=== PATIENT | male | born 1955 | race Two or more races ===

== ENCOUNTER 2018-07-21 00:30 | Inpatient (IN) | payer BC ==
[2018-07-21] VITALS (8 sets, daily range): BP systolic 130–146; BP diastolic 62–79; PULSE 72–86; RESP 16–20; Ht 180.3 cm; Wt 96.4 kg
[~2018-07-21] VITALS: Ht 180.3 cm; Wt 96.4 kg
[2018-07-21] MEDS ORDERED: NACL 0.9% 3 ML SYG IV SCH (06:00)
[2018-07-21] MEDS ORDERED: DOCUSATE SODIUM 100 MG CAP PO PRN (06:00)
[2018-07-21] MEDS ORDERED: BISACODYL (EC) 5 MG TAB PO PRN (06:00)
[2018-07-21] MEDS ORDERED: ACETAMINOPHEN 325 MG TAB PO PRN (06:00)
[2018-07-21] MEDS ORDERED: ONDANSETRON 4 MG INJ IV PRN ×2 (06:00)
[2018-07-21] MEDS ORDERED: GLUCOSE GEL 15 GRAM TUBE BUCCAL PRN (06:30)
[2018-07-21] MEDS ORDERED: GLUCOSE GEL 15 GRAM TUBE PO PRN ×2 (06:30)
[2018-07-21] MEDS ORDERED: DEXTROSE 50% 50 ML SYRINGE IV PRN ×2 (06:30)
[2018-07-21] MEDS ORDERED: GLUCAGON 1 MG INJ IM PRN (06:30)
[2018-07-21] MEDS: MECLIZINE 25 MG TAB PO SCH ×3 (08:08→12:10)
[2018-07-21] MEDS: INSULIN ASPART [NOVOLOG] 3 ML PEN SC SCH ×3 (08:10→18:13)
[2018-07-21] MEDS ORDERED: NITROGLYCERIN (SL) 0.4 MG TAB SL PRN (14:00)
[2018-07-21] MEDS ORDERED: ASPIRIN 81 MG TAB PO SCH (14:00)
--- NOTE | 2018-07-21 14:12 | HP ---
Date/Time of Note Date/Time of Note DATE: 07/21/18 TIME: 14:04 Assessment/Plan VTE Prophylaxis Risk score (from Nsg)>0 risk: 3 SCD applied (from Nsg): Yes Pharmacological prophylaxis: heparin Lines/Catheters IV Catheter Type (from Nrsg): Saline Lock Assessment/Plan Hospital Course SUBJECTIVE: Lying in bed comfortably. Currently no chest pain, palpitation, shortness of breath, nausea, diaphoresis or other discomfort. OBJECTIVE: Vital signs-see below PHYSICAL EXAM: Constitutional: Well-developed, adequately built, lying in bed comfortably. Psych: nl mood/affect, no complaints Head: atraumatic, normocephalic Eyes: nl conjunctiva, nl sclera ENMT: mucosa pink and moist, nl external ears & nose Neck: non-tender, supple Respiratory: clear to auscultation, normal air movement Cardiovascular: nl pulses, regular rate and rhythm Gastrointestinal: non-tender, soft, bowel sounds active in all 4 quadrants. Musculoskeletal/extremities: nl extremities to inspection, motor strength equal bilaterally, no focal deficit. Normal pulses,no cyanosis, no edema. Neurological: Alert oriented 3,nl speech, nl strength Skin: nl turgor ASSESSMENT/PLAN: 62-year-old Farsi speaking male with htn, hyperlipidemia, brain tumor resection surgery, transferred from outside hospital for sudden onset of dizziness/chest pain. 1. Chest pain. Rule out acute coronary syndrome. -Transfer patient to appropriate telemetry floor, rule out ACS with serial troponin, EKG. -Cardiology consult -TTE -Aspirin prophylaxis, PRN nitroglycerin, PRN morphine, oxygen if indicated. 2. Dizziness -Rule out cardiac etiology versus neurovascular etiology versus vertigo -Orthostatic series, CT brain -Meclizine trial -PT eval 3. DMII -A1c noted -Accu-Cheks/ISS/Lantus -Diabetic education, carbohydrate controlled diet 4. Hyperlipidemia -Start statin DVT prophylaxis: Heparin PUD prophylaxis: Not indicated CODE STATUS: Full code Diet: Carbohydrate controlled diet. Mese[employer] nursing staff to transfer patient to telemetry for further workup. Farsi translation was used during the interview process. Rest of the management depend on hospital course. Approximately 60 m spent on this history and physical. Patient is seen in collaboration with Dr. Franz Result Diagram: 07/21/1861107/[id number]/18611 Results 24hrs Laboratory Tests Test 07/21/18 05:19 07/21/18 06:12 07/21/18 08:08 07/21/18 12:08 Bedside Glucose 157 190 234 H White Blood Count 6.4 Red Blood Count 4.32 L Hemoglobin 13.6 L Hematocrit 39.0 L Mean Corpuscular Volume 90.3 Mean Corpuscular 31.5 Hemoglobin Mean Corpuscular 34.9 Hemoglobin Concent Red Cell Distribution 11.6 Width Platelet Count 157 Mean Platelet Volume 13.2 H Immature Granulocytes % 0.300 Neutrophils % 47.0 Lymphocytes % 41.3 Monocytes % 8.3 Eosinophils % 2.5 Basophils % 0.6 Nucleated Red Blood 0.0 Cells % Immature Granulocytes # 0.020 Neutrophils # 3.0 Lymphocytes # 2.6 Monocytes # 0.5 Eosinophils # 0.2 Basophils # 0.0 Nucleated Red Blood 0.0 Cells # Sodium Level 142 Potassium Level 3.7 Chloride Level 109 Carbon Dioxide Level 26 Anion Gap 7 Blood Urea Nitrogen 14 Creatinine 0.75 Est Glomerular Filtrat > 60 Rate mL/min Glucose Level 160 Hemoglobin A1c 10.0 H Calcium Level 8.9 Magnesium Level 2.0 Total Bilirubin 0.4 Direct Bilirubin 0.00 Indirect Bilirubin 0.4 Aspartate Amino 19 Transf (AST/SGOT) Alanine 30 Aminotransferase (ALT/SG PT) Alkaline Phosphatase 47 Total Protein 6.2 Albumin 3.5 Globulin 2.70 Albumin/Globulin Ratio 1.29 Triglycerides Level 204 H Cholesterol Level 146 LDL Cholesterol, 68 Calculated HDL Cholesterol 37 Cholesterol/HDL Ratio 3.9 Thyroid Stimulating 0.683 Hormone (TSH) HPI/ROS Admit Date/Time Admit Date/Time Jul 21, 2018 at 04:14 Hx of Present Illness This is a 62-year-old Farsi speaking male with a history of type 2 diabetes, hyperlipidemia, brain tumor resection, knee surgeries, cholecystectomy, tobacco use, presented to outside hospital with sudden onset of chest pain, diaphoresis, and dizziness times 1 day duration. He also reported some ringing in his left ear. Patient had a similar episode one year ago. His symptoms exacerbated by activity and relieved by rest. Patient never had any cardiac workup. There is no medical records available from outside hospital. Patient denied shortness of breath, nausea, vomiting, abdominal pain, loss of consciousness, speech difficulties, vision changes, numbness, tingling, headache, constitutional symptoms. [facility] ROS A 12 point review of system was assessed and is negative other than what is mentioned in the HPI. PMH/Family/Social Past Medical History See HPI Medications Current Medications IV Flush (NS 3 ml) 3 ml PER PROTOCOL IV ; Start 07/21/18 at 06:00 Acetaminophen (Tylenol Tab) 650 mg Q6H PRN PO .PAIN 1-3 OR TEMP; Start 07/21/18 at 06:00 Docusate Sodium (Colace) 100 mg Q12H PRN PO .CONSTIPATION; Start 07/21/18 at 06: 00 Bisacodyl (Dulcolax) 5 mg DAILY PRN PO .CONSTIPATION; Start 07/21/18 at 06:00 Meclizine HCl (Antivert) 25 mg TID PO Last administered on 07/21/18at 12:10; Admin Dose 25 MG; Start 07/21/18 at 06:00 Ondansetron HCl (Zofran Inj) 4 mg Q4H PRN IV NAUSEA/VOMITING; Start 07/21/18 at 06:00 Diagnostic Test (Pha) (Accu-Chek) 1 ea 02 XX ; Start 07/22/18 at 02:00 Insulin Aspart (Novolog Insulin Pen) NOVOLOG *MILD* ALGORITHM WITH MEALS BEDTIME SC Last administered on 07/21/18at 12:10; Admin Dose 3 UNIT; Start 07/21/18 at 08:00 Miscellaneous Information 1 ea NOTE XX ; Start 07/21/18 at 06:30 Glucose (Glutose) 15 gm Q15M PRN PO DECREASED GLUCOSE; Start 07/21/18 at 06:30 Glucose (Glutose) 22.5 gm Q15M PRN PO DECREASED GLUCOSE; Start 07/21/18 at 06:30 Dextrose (D50w Syringe) 25 ml Q15M PRN IV DECREASED GLUCOSE; Start 07/21/18 at 06:30 Dextrose (D50w Syringe) 50 ml Q15M PRN IV DECREASED GLUCOSE; Start 07/21/18 at 06:30 Glucagon (Glucagen) 1 mg Q15M PRN IM DECREASED GLUCOSE; Start 07/21/18 at 06:30 Glucose (Glutose) 15 gm Q15M PRN BUCCAL DECREASED GLUCOSE; Start 07/21/18 at 06:30 Influenza Virus Vaccine Quadrival (Fluzone) 0.5 ml ONCE ONCE IM* ; Start 07/22/18 at 10:00; Stop 07/22/18 at 10:01 Insulin Glargine (Lantus) 19 units DAILY@0800 SC ; Start 07/21/18 at 14:30 Fish Oil (Fish Oil) 1,000 mg BID PO ; Start 07/21/18 at 21:00 Aspirin (Aspirin) 81 mg DAILY PO ; Start 07/21/18 at 14:00; Status UNV Nitroglycerin (Nitroglycerin (Sl Tab) 0.4 Mg) 1 tab Q5M PRN SL ANGINA; Start 07/21/18 at 14:00; Status UNV Coded Allergies: No Known Allergy (Unverified , 07/21/18) Past Surgical History Cholecystectomy, brain tumor resection surgery, knee surgery, Social History Smokes 2 cigarettes/day. Denies alcohol or substance abuse. Smoking Status: Current every day smoker Exam/Review of Systems Vital Signs Vitals Vital Signs Date Temp Pulse Resp B/P (MAP) Pulse Ox O2 O2 Flow FiO2 Time Delivery Rate 07/21/18 98.6 80 20 136/70 94 08:00 (92) NAPOLEON BRIZUELA NP Jul 21, 2018 14:11
[2018-07-21] MEDS ORDERED: INSULIN GLARGINE [LANTus] (100 UNITS/ML) SYG SC SCH (14:30)
--- NOTE | 2018-07-21 17:15 | RADRPT ---
Echocardiogram Report Patient Name: YONAS CHRISTINEPatient ID: [id number] : 1955 (62y 8m)Study Date: 07/21/2018 2:47:42 PM Gender: MAccession #: [id number] Tech: Don Gan [facility] Location: [id number] Ref.Physician: NAPOLEON BRIZUELA Height(Cm): BSA: Weight(Kg): Quality: AdequateAccount #: Procedures: Echocardiographic Report: Transthoracic echocardiogram with complete 2D, M-Mode, and doppler examination. Indications: Chest Pain. Measurements: 2D/M Mode Doppler Measurement Value Normal Range Measurement Value Normal Range LVIDd 2D 3.7 [ 4.2 - 5.8 ] cm AV Peak Murali 1.7 [ 100.0 - 170.0 ] cm/sec LVIDs 2D 2.0 [ 2.5 - 4.0 ] cm AV Peak PG 12.0 [ 2.0 - 9.0 ] mmHg LVPWd 2D 1.1 [ 0.6 - 1.0 ] cm LVOT Peak Murali 1.1 [ 70.0 - 110.0 ] cm/sec IVSd 2D 1.0 [ 0.6 - 1.0 ] cm LVOT Peak PG 5.0 [ 2.0 - 6.0 ] mmHg AoR Diam 2D 2.7 [ 2.6 - 3.4 ] cm MV E Peak Murali 0.8 [ 60.0 - 130.0 ] cm/sec EDV 2D 57.8 [ 62.0 - 150.0 ] ml MV A Peak Murali 0.6 [ 100.0 - 120.0 ] cm/sec ESV 2D 12.4 [ 21.0 - 61.0 ] ml MV E/A 1.3 [ 0.8 - 1.5 ] ratio EF 2D 78.5 [ 52.0 - 72.0 ] percent MV Decel Time 176 [ 104 - 258 ] msec LA Dimen 2D 3.4 [ 3.0 - 4.0 ] cm Lat E` Murali 0.1 [ 10.0 - 15.0 ] cm/sec Lateral E/E` 7.2 [ 1.0 - 2.0 ] ratio MV E/A 1.3 [ 0.8 - 1.5 ] ratio Findings: Left Ventricle: Normal left ventricular systolic function. Normal left ventricular cavity size. Mild concentric left ventricular hypertrophy. Ejection fraction is visually estimated at 65 %. Tissue Doppler/Mitral Doppler indices are consistent with pseudonormalization with mildly elevated left atrial pressure (Stage II diastolic dysfunction). Right Ventricle: Normal right ventricular size. Normal right ventricular systolic function. Left Atrium: The left atrium is normal in size. Right Atrium: The right atrium is normal in size. Mitral Valve: Normal appearance and function of the mitral valve with trace physiologic regurgitation. Aortic Valve: No significant aortic stenosis or insufficiency. Aortic cusps appear mildly calcified. Tricuspid Valve: Normal appearance and function of the tricuspid valve with trace physiologic regurgitation. Pulmonic Valve: Normal pulmonic valve appearance. Pericardium: Normal pericardium with no significant pericardial effusion. Aorta: Normal aortic root. IVC: Normal size and normal respiratory collapse consistent with normal right atrial pressure. Conclusions: Normal left ventricular systolic function. Normal left ventricular cavity size. Mild concentric left ventricular hypertrophy. Ejection fraction is visually estimated at 65 %. Tissue Doppler/Mitral Doppler indices are consistent with pseudonormalization with mildly elevated left atrial pressure (Stage II diastolic dysfunction). Normal right ventricular size. Normal right ventricular systolic function. The left atrium is normal in size. The right atrium is normal in size. No significant valvular stenosis or regurgitation seen. Normal pericardium with no significant pericardial effusion. Electronically Signed By: Luke Lopez 2018-07-21 17:14:13 PST
--- NOTE | 2018-07-21 17:15 | CONS ---
Assessment/Plan Assessment/Plan Hospital Course (Demo Recall) Dizziness-resolved Right sided chest pain-resolved Preserved EF DM HTN HLD -sx have all since resolved. Chest pain non-exertional and right sided and occured yesterday. Troponins negative today, ecg WNL, echo preserved EF. No further inpt CV w/u needed at the current time. Consultation Date/Type/Reason Admit Date/Time Jul 21, 2018 at 04:14 Type of Consult Cardiology Reason for Consultation cp and dizziness Date/Time of Note DATE: 07/21/18 TIME: 17:15 Hx of Present Illness 62 y/o M with PMHX DM, HTN, HLD who presents with ringing in his ear and dizziness yesterday. Sx with waking in am. Also on further questioning, pt with chest pain. Pain is right sided, no sob, last a few seconds, non-exertional. Dizziness and chest pain has since resolved. Denies exertional cp, sob, diaphoresis 12 point ROS performed with all pertinent pos and neg mentioned above and all else is neg Past Medical History Medical History: diabetes, high cholesterol, hypertension Home Meds No Active Prescriptions or Reported Meds Medications Current Medications IV Flush (NS 3 ml) 3 ml PER PROTOCOL IV ; Start 07/21/18 at 06:00 Acetaminophen (Tylenol Tab) 650 mg Q6H PRN PO .PAIN 1-3 OR TEMP; Start 07/21/18 at 06:00 Docusate Sodium (Colace) 100 mg Q12H PRN PO .CONSTIPATION; Start 07/21/18 at 0 6:00 Bisacodyl (Dulcolax) 5 mg DAILY PRN PO .CONSTIPATION; Start 07/21/18 at 06:00 Ondansetron HCl (Zofran Inj) 4 mg Q4H PRN IV NAUSEA/VOMITING; Start 07/21/18 at 06:00 Diagnostic Test (Pha) (Accu-Chek) 1 ea 02 XX ; Start 07/22/18 at 02:00 Insulin Aspart (Novolog Insulin Pen) NOVOLOG *MILD* ALGORITHM WITH MEALS BEDTIME SC Last administered on 07/21/18at 12:10; Admin Dose 3 UNIT; Start 07/21/18 at 08:00 Miscellaneous Information 1 ea NOTE XX ; Start 07/21/18 at 06:30 Glucose (Glutose) 15 gm Q15M PRN PO DECREASED GLUCOSE; Start 07/21/18 at 06:30 Glucose (Glutose) 22.5 gm Q15M PRN PO DECREASED GLUCOSE; Start 07/21/18 at 06:30 Dextrose (D50w Syringe) 25 ml Q15M PRN IV DECREASED GLUCOSE; Start 07/21/18 at 06:30 Dextrose (D50w Syringe) 50 ml Q15M PRN IV DECREASED GLUCOSE; Start 07/21/18 at 06:30 Glucagon (Glucagen) 1 mg Q15M PRN IM DECREASED GLUCOSE; Start 07/21/18 at 06:30 Glucose (Glutose) 15 gm Q15M PRN BUCCAL DECREASED GLUCOSE; Start 07/21/18 at 06:30 Influenza Virus Vaccine Quadrival (Fluzone) 0.5 ml ONCE ONCE IM* ; Start 07/22/18 at 10:00; Stop 07/22/18 at 10:01 Insulin Glargine (Lantus) 19 units DAILY@0800 SC Last administered on 07/21/18at 14:21; Admin Dose 19 UNITS; Start 07/21/18 at 14:30 Fish Oil (Fish Oil) 1,000 mg BID PO ; Start 07/21/18 at 21:00 Aspirin (Aspirin) 81 mg DAILY PO Last administered on 07/21/18at 14:20; Admin Dose 81 MG; Start 07/21/18 at 14:00 Nitroglycerin (Nitroglycerin (Sl Tab) 0.4 Mg) 1 tab Q5M PRN SL ANGINA; Start 07/21/18 at 14:00 Atorvastatin Calcium (Lipitor) 40 mg HS PO ; Start 07/21/18 at 21:00 Meclizine HCl (Antivert) 12.5 mg TID PO ; Start 07/21/18 at 21:00 Allergies: Coded Allergies: No Known Allergy (Unverified , 07/21/18) Past Surgical History ortho surgeries Social History Alcohol Use: none Smoking Status: Current every day smoker Exam/Review of Systems Vital Signs Vitals Vital Signs Date Temp Pulse Resp B/P (MAP) Pulse Ox O2 O2 Flow FiO2 Time Delivery Rate 07/21/18 81 16:12 07/21/18 98.0 20 141/79 97 15:52 (99) Exam Constitutional: alert, oriented (nad) Head: normocephalic Respiratory: other (course bs, no wheeze) Cardiovascular: regular rate and rhythm (s1s2) Gastrointestinal: soft, non-tender, bowel sounds Extremities: other (no edema) Labs Result Diagram: 07/21/18 0612 07/21/18 0612 Results 24hrs Laboratory Tests Test 07/21/18 05:19 07/21/18 06:12 07/21/18 08:08 07/21/18 12:08 Bedside Glucose 157 190 234 H White Blood Count 6.4 Red Blood Count 4.32 L Hemoglobin 13.6 L Hematocrit 39.0 L Mean Corpuscular Volume 90.3 Mean Corpuscular 31.5 Hemoglobin Mean Corpuscular 34.9 Hemoglobin Concent Red Cell Distribution 11.6 Width Platelet Count 157 Mean Platelet Volume 13.2 H Immature Granulocytes % 0.300 Neutrophils % 47.0 Lymphocytes % 41.3 Monocytes % 8.3 Eosinophils % 2.5 Basophils % 0.6 Nucleated Red Blood 0.0 Cells % Immature Granulocytes # 0.020 Neutrophils # 3.0 Lymphocytes # 2.6 Monocytes # 0.5 Eosinophils # 0.2 Basophils # 0.0 Nucleated Red Blood 0.0 Cells # Sodium Level 142 Potassium Level 3.7 Chloride Level 109 Carbon Dioxide Level 26 Anion Gap 7 Blood Urea Nitrogen 14 Creatinine 0.75 Est Glomerular Filtrat > 60 Rate mL/min Glucose Level 160 Hemoglobin A1c 10.0 H Calcium Level 8.9 Magnesium Level 2.0 Total Bilirubin 0.4 Direct Bilirubin 0.00 Indirect Bilirubin 0.4 Aspartate Amino 19 Transf (AST/SGOT) Alanine 30 Aminotransferase (ALT/SG PT) Alkaline Phosphatase 47 Total Protein 6.2 Albumin 3.5 Globulin 2.70 Albumin/Globulin Ratio 1.29 Triglycerides Level 204 H Cholesterol Level 146 LDL Cholesterol, 68 Calculated HDL Cholesterol 37 Cholesterol/HDL Ratio 3.9 Thyroid Stimulating 0.683 Hormone (TSH) Test 07/21/18 14:08 07/21/18 14:19 Creatine Kinase 67 Creatine Kinase Index 1.7 Creatinine Kinase MB 1.13 (Mass) Troponin I < 0.012 Bedside Glucose 271 H Imaging Imaging ecg sr, no sig ischemic st-t wave abn Medications Medications Current Medications IV Flush (NS 3 ml) 3 ml PER PROTOCOL IV ; Start 07/21/18 at 06:00 Acetaminophen (Tylenol Tab) 650 mg Q6H PRN PO .PAIN 1-3 OR TEMP; Start 07/21/18 at 06:00 Docusate Sodium (Colace) 100 mg Q12H PRN PO .CONSTIPATION; Start 07/21/18 at 06:00 Bisacodyl (Dulcolax) 5 mg DAILY PRN PO .CONSTIPATION; Start 07/21/18 at 06:00 Ondansetron HCl (Zofran Inj) 4 mg Q4H PRN IV NAUSEA/VOMITING; Start 07/21/18 at 06:00 Diagnostic Test (Pha) (Accu-Chek) 1 ea 02 XX ; Start 07/22/18 at 02:00 Insulin Aspart (Novolog Insulin Pen) NOVOLOG *MILD* ALGORITHM WITH MEALS BEDTIME SC Last administered on 07/21/18at 12:10; Admin Dose 3 UNIT; Start 07/21/18 at 08:00 Miscellaneous Information 1 ea NOTE XX ; Start 07/21/18 at 06:30 Glucose (Glutose) 15 gm Q15M PRN PO DECREASED GLUCOSE; Start 07/21/18 at 06:30 Glucose (Glutose) 22.5 gm Q15M PRN PO DECREASED GLUCOSE; Start 07/21/18 at 06:30 Dextrose (D50w Syringe) 25 ml Q15M PRN IV DECREASED GLUCOSE; Start 07/21/18 at 06:30 Dextrose (D50w Syringe) 50 ml Q15M PRN IV DECREASED GLUCOSE; Start 07/21/18 at 06:30 Glucagon (Glucagen) 1 mg Q15M PRN IM DECREASED GLUCOSE; Start 07/21/18 at 06:30 Glucose (Glutose) 15 gm Q15M PRN BUCCAL DECREASED GLUCOSE; Start 07/21/18 at 06:30 Influenza Virus Vaccine Quadrival (Fluzone) 0.5 ml ONCE ONCE IM* ; Start 07/22/18 at 10:00; Stop 07/22/18 at 10:01 Insulin Glargine (Lantus) 19 units DAILY@0800 SC Last administered on 07/21/18at 14:21; Admin Dose 19 UNITS; Start 07/21/18 at 14:30 Fish Oil (Fish Oil) 1,000 mg BID PO ; Start 07/21/18 at 21:00 Aspirin (Aspirin) 81 mg DAILY PO Last administered on 07/21/18at 14:20; Admin Dose 81 MG; Start 07/21/18 at 14:00 Nitroglycerin (Nitroglycerin (Sl Tab) 0.4 Mg) 1 tab Q5M PRN SL ANGINA; Start 07/21/18 at 14:00 Atorvastatin Calcium (Lipitor) 40 mg HS PO ; Start 07/21/18 at 21:00 Meclizine HCl (Antivert) 12.5 mg TID PO ; Start 07/21/18 at 21:00 Luke Lopez DO Jul 21, 2018 17:15
[2018-07-21] MEDS ORDERED: FISH OIL 1,000 MG CAP PO SCH (21:00)
[2018-07-21] MEDS ORDERED: MECLIZINE 12.5 MG TAB PO SCH (21:00)
[2018-07-21] MEDS ORDERED: ATORVASTATIN 40 MG TAB PO SCH (21:00)
[2018-07-22] MEDS ORDERED: ACCU-CHEK XX SCH (02:00)
--- NOTE | 2018-07-22 08:37 | RADRPT ---
Vent Rate: 77 bpm RR Interval: 0 msec WV Interval: 186 msec QRS Duration: 88 msec QT Interval: 394 msec QTC Interval: 445 msec P-R-T Watkins: 57 - 34 - 55 degrees Normal sinus rhythm Normal ECG Electronically Signed By: José Miguel Phillips
[2018-07-22] MEDS ORDERED: INFLUENZA VIRUS VACCINE 0.5 ML (DISPENSING) IM* ONE (10:00)
--- NOTE | 2018-07-22 12:29 | DS ---
Date/Time of Note Date/Time of Note DATE: 07/22/18 TIME: 12:27 Discharge Summary Admission/Discharge Info Admit Date/Time Jul 21, 2018 at 04:14 Discharge Date/Time Jul 21, 2018 at 18:54 Discharge Diagnosis 1. Chest pain, likely muscular skeletal. ACS ruled out. 2. Dizziness, unknown etiology. Patient did not want any further imaging studies or other workup and decided to leave. 3. DMII 4. Hyperlipidemia Patient Condition: Stable Consults , [employer] Procedures 07/22/1999 90-minute 2D echocardiogram. Conclusions: Normal left ventricular systolic function. Normal left ventricular cavity size. Mild concentric left ventricular hypertrophy. Ejection fraction is visually estimated at 65 %. Tissue Doppler/Mitral Doppler indices are consistent with pseudonormalization with mildly elevated left atrial pressure (Stage II diastolic dysfunction). Normal right ventricular size. Normal right ventricular systolic function. The left atrium is normal in size. The right atrium is normal in size. No significant valvular stenosis or regurgitation seen. Normal pericardium with no significant pericardial effusion. Electronically Signed By: Luke Lopez 2018-07-21 17:14:13 PST Dictated By: Hx of Present Illness This is a 62-year-old Farsi speaking male with a history of type 2 diabetes, hyperlipidemia, brain tumor resection, knee surgeries, cholecystectomy, tobacco use, presented to outside hospital with sudden onset of chest pain, diaphoresis, and dizziness times 1 day duration. He also reported some ringing in his left ear. Patient had a similar episode one year ago. His symptoms exacerbated by activity and relieved by rest. Patient never had any cardiac workup. There is no medical records available from outside hospital. Patient denied shortness of breath, nausea, vomiting, abdominal pain, loss of consciousness, speech difficulties, vision changes, numbness, tingling, headache, constitutional symptoms. [facility] capitation. Hospital Course Is a 62-year-old Farsi speaking male with a history of hypertension, hyperlipidemia, brain tumor resection surgery, who was transferred from outside hospital where he initially presented with sudden onset of dizziness and right- sided chest pain. Patient was admitted to rule out acute coronary syndrome, or acute neurovascular events. However, patient did not want to stay for further imaging studies including a CT brain or others after he was cleared from a cardiac standpoint by the [employer]. As patient insisted on discharge with no further checkup, he was discharged by hospitalist telephone installer. At this time, etiology of dizziness and chest pain remains unclear although from cardiology notes, symptoms are not related to cardiac etiology, this could be musculoskeletal pain in origin. However, etiology of dizziness remain unclear as patient was not receptive for any further imaging studies. As per nursing staff, patient was completely asymptomatic on time of discharge. There is no prescriptions given or any discharge instructions given in EMR. Case d/w Home Meds No Active Prescriptions or Reported Meds Primary Care Provider Care Physician No Primary Pending Labs Laboratory Tests Test 07/21/18 14:08 07/21/18 14:19 07/21/18 17:46 Creatine Kinase 67 IU/L (23-200) Creatine Kinase 1.7 Index Creatinine Kinase 1.13 MB (Mass) ng/ml (0.0-2.4) Troponin I < 0.012 ng/ml (0.000-0.120) Bedside Glucose 271 mg/dL (70-220) 205 mg/dL (70-220) NAPOLEON BRIZUELA NP Jul 22, 2018 12:29
== END 2018-07-21 18:54 | disposition home or self-care (01) | DRG 313 ==
LOC: PP2 00:30 → UNDOADMIN 00:30 → PP2 04:14 → TEL 15:49
PROVIDERS: ADMIT Family Medicine; ATTEND Family Medicine
DX: R07.9 Chest pain, unspecified (principal); R42 Dizziness and giddiness; E11.9 Type 2 diabetes mellitus without complications; E78.5 Hyperlipidemia, unspecified; I10 Essential (primary) hypertension
CPT/HCPCS: 80053; 80061; 82306; 82550; 82553; 82962; 83036; 83735; 84443; 84484; 85025; 93005; 93306; J1815